=== PATIENT | female | born 1975 | race Caucasian/White ===

== ENCOUNTER 2018-07-07 08:51 | Day surgery (SDC) | payer MEDICARE ==
[~2018-07-07 08:51] MED LIST: ACETAMINOPHEN 1,000 MG/100 ML BTL IVPB ONE; CEFAZOLIN 2 Gram 2 GM/50 ML BAG IVPB ONE; RINGERS SOLUTION,LACTATED 1,000 ML IV ONE
[2018-07-07] MEDS ORDERED: BUPIVACAINE 0.25% MPF 30ML VIAL IVP ONE (08:52)
[2018-07-07] MEDS ORDERED: DESFLURANE 240 ML BTL INH ONE (08:52)
[2018-07-07] MEDS ORDERED: MORPHINE SULFATE PF 10MG/10ML VIAL IV ONE (08:52)
[2018-07-07] MEDS ORDERED: BUPIVACAINE LIPOSOME/PF 133MG/10ML VIAL IV ONE (08:52)
[2018-07-07] MEDS ORDERED: DEXAMETHASONE 4 MG/ML 1ML VIAL IVP ONE (08:52)
[2018-07-07] MEDS ORDERED: MIDAZOLAM HCL 2MG/2ML VIAL IV ONE (08:52)
[2018-07-07] MEDS ORDERED: ONDANSETRON HCL IV 4 MG/2 ML VIAL IVP ONE (08:52)
[2018-07-07] MEDS ORDERED: EPHEDRINE SULFATE 50 MG/ML ML IV ONE (08:52)
[2018-07-07] MEDS ORDERED: PROPOFOL 10 MG/ML VIAL IV ONE (08:52)
[2018-07-07] MEDS ORDERED: FENTANYL PF 100MCG/2ML VIAL IV ONE (08:52)
[2018-07-07] MEDS ORDERED: LIDOCAINE 2% MDV (20MG/ML) 20ML VIAL IV ONE (08:52)
[2018-07-07] MEDS ORDERED: GLYCOPYRROLATE 0.2 MG/ML ML IV ONE (08:52)
[2018-07-07] MEDS ORDERED: RINGERS SOLUTION,LACTATED 1,000 ML IV ONE (12:39)
[2018-07-07] MEDS ORDERED: BUPIVACAINE 0.5% W/EPI MPF 30 ML VIAL SQ ONE (12:43)
[2018-07-07] MEDS ORDERED: METHYLPREDNISOLONE 40MG/VIAL IU ONE (12:43)
[2018-07-07] MEDS ORDERED: MORPHINE SULFATE 4 MG/ML VIAL IVP ONE (12:44)
[2018-07-07] MEDS ORDERED: MORPHINE SULFATE 4 MG/ML VIAL ONE (13:57)
--- NOTE | 2018-07-08 09:11 | Operative Note ---
DATE OF SERVICE: 07/07/2018. DATE OF SURGERY: 07/07/2018. PREOPERATIVE DIAGNOSIS: Left shoulder impingement with adhesive capsulitis. POSTOPERATIVE DIAGNOSES: 1. Synovitis, left shoulder. 2. External impingement, left shoulder. 3. Arthrosis, left distal clavicle. 4. Adhesive capsulitis, left shoulder. OPERATION: 1. Left shoulder arthroscopy with synovectomy. 2. Left shoulder open acromioplasty, CA ligament resection, subacromial bursectomy. 3. Left shoulder distal clavicle resection. 4. Left shoulder manipulation under anesthesia. SURGEON: Nawaf Cooney MD. ANESTHESIA: General. PREPARATION: ChloraPrep. INDIVIDUAL CONSIDERATIONS: None. PROCEDURE: Patient was taken to the operating room, placed supine on the operating room table. She had a successful induction with general anesthetic. I manipulated her shoulder. She had adhesive capsulitis at about 90 degrees. I got her to full abduction and rotation. She was then prepped and draped in usual fashion. Patient had a posterior portal identified for arthroscopy. The skin was again infiltrated with 0.5% Marcaine with epinephrine prior. An 18 gauge spinal needle was placed in the joint, and the joint was inflated with normal saline. A stab wound was made and a blunt-tipped trocar through the scope was placed in the joint, and the joint was inflated with normal saline. An anterior accessory portal was then made just inferior to the intact long head of the biceps tendon in retrograde fashion with a Wissinger kenrick. There was a hemarthrosis from the manipulation, which was drained. There was synovitis present, which was debrided. The long head, rotator cuff, and glenohumeral joint, subscap, and labrum were intact. After irrigation, portals were closed with sonny. Patient had anterior approach to subacromial space and distal clavicle. Skin was again infiltrated with 0.5% Marcaine with epinephrine prior. Sharp dissection carried down through skin and subcutaneous tissue. Small veins were coagulated with the Bovie. An anterior deltoid interval was developed. Care was taken not to split the deltoid more than about 4 cm distal to the anterior tip of the acromion to prevent injury to the axillary nerve. Once in the subacromial space, there was a very thick bursa, large anterior spur of the acromion, and spurs of the distal clavicle. CA ligament was resected with the Bovie. Distal clavicle was resected with an oscillating saw. An anterior acromioplasty was performed, taking about a cm, tapering to a wedge posteromedially to include the spurs of the AC joint. The undersurface was smoothed with a rasp. The very thick bursa was debrided out. I now had a good look at the rotator cuff. It looked contused, but there was no tear. After irrigation, I went ahead and placed a 22 gauge needle within the joint itself. I then reattached the deltoid to the remaining acromion with multiple interrupted #2 Vicyl, going directly through the bony acromion. Periosteal cuff of distal clavicle was closed with running #2 Vicryl. Anterior deltoid interval was closed with a running #1 Vicryl. Subcu was closed in layers, running 2-0 plus Vicryl. Skin was closed with running 3-0 Quill. An 18 gauge spinal needle was placed in the subacromial space. The needle within the joint was then injected with 40 mg of Depo-Medrol, along with 4 mg of Marcaine with epi. The needle in the subacromial space had 40 mg of Depo-Medrol, along with 15 mg of 0.5% Marcaine with epi, along with 10 mg of morphine injected. A sterile, bulky, compressive dressing and sling were applied. Patient tolerated the procedures well. Needle and sponge counts were correct. Estimated blood loss was minimal, and she was taken back to recovery in good condition. There were no complications. KEVIN
== END 2018-07-07 14:19 | disposition home or self-care (01) ==
LOC: SUR 08:51
PROVIDERS: ATTEND Orthopaedic Surgery
DX: M75.02 Adhesive capsulitis of left shoulder (principal); M19.012 Primary osteoarthritis, left shoulder; M65.9 Synovitis and tenosynovitis, unspecified; E11.9 Type 2 diabetes mellitus without complications; E78.00 Pure hypercholesterolemia, unspecified; G47.33 Obstructive sleep apnea (adult) (pediatric); E66.01 Morbid (severe) obesity due to excess calories
CPT/HCPCS: 76942; 81025; C9290; J1030; J2270; J2405; J7120